=== PATIENT | male | born 1955 | race Caucasian/White ===

== ENCOUNTER 2023-06-04 19:43 | Emergency (ER) | payer OTHER ==
[~2023-06-04] VITALS: Ht 165.1 cm; Wt 70.3 kg
[~2023-06-04 19:43] MED LIST: AMLO10 PO; ASPI81CH PO; ATOR40TA PO; CLOP75 PO; HYDCHL12.5 PO; LOSA50 PO; METO50ER PO; Omeprazole20 M1 PO
[2023-06-04 20:20] LABS: BASOPHILS ABSOLUTE AUTO 0.05 K/mm3 (0.00-0.23); BASOPHILS PERCENT AUTO 0 % (0-2); EOSINOPHILS ABSOLUTE AUTO 0.03 K/mm3 (0.00-0.68); EOSINOPHILS PERCENT AUTO 0 % (0-6); Hematocrit 43.2 % (37.0-53.0); Hemoglobin 16.1 g/dL (13.5-17.5); IMMATURE GRAN ABSOLUTE AUTO 0.04 K/mm3 (0.00-0.10); IMMATURE GRAN PERCENT AUTO 0 % (0-1); LYMPHOCYTES ABSOLUTE AUTO 0.91 K/mm3 (0.84-5.20); LYMPHOCYTES PERCENT AUTO 6 % (21-46); MONOCYTES ABSOLUTE AUTO 0.84 K/mm3 (0.16-1.47); MONOCYTES PERCENT AUTO 6 % (4-13); Mean Corpuscular HGB 35.7 pg (26.0-34.0); Mean Corpuscular HGB Conc 37.3 g/dL (31.5-36.5); Mean Corpuscular Volume 96 fL (80-100); Mean Platelet Volume 10.5 fL (9.1-12.4); NEUTROPHILS ABSOLUTE AUTO 12.39 K/mm3 (1.96-9.15); NEUTROPHILS PERCENT AUTO 87 % (41-73); Platelet Count 211 K/mm3 (150-400); RDW Coefficient Variation 11.7 % (11.7-14.2); RDW Standard Deviation 41.1 fL (35.1-46.3); Red Blood Cell Count 4.51 M/mm3 (4.30-5.90); White Blood Cell Count 14.26 K/mm3 (4.00-11.30)
[2023-06-04 20:41] LABS: Albumin, Blood 3.8 g/dL (3.4-5.0); Albumin/Globulin Ratio 0.9 (0.8-1.8); Bilirubin, Total 0.7 mg/dL (0.1-1.0); Bun/Creatinine Ratio 16.8 (12.0-20.0); Calcium, Blood 9.2 mg/dL (8.5-10.1); Creatinine, Blood 1.01 mg/dL (0.60-1.20); Globulin, Blood 4.2 g/dL (2.2-4.0); Potassium, Blood 3.6 mmol/L (3.5-5.5)
[2023-06-04 23:11] LABS: Source, Urine Clean Catch
[2023-06-04 23:15] LABS: Bilirubin, Urine Neg (Neg); Blood, Urine Neg (Neg); Glucose Qualitative, Urine Neg (Neg); Ketones, Urine Neg (Neg); Leukocyte Esterase, Urine Neg (Neg); Nitrite, Urine Neg (Neg); Protein, Urine 1+ (Neg); Urobilinogen, Urine NORM (Normal)
[2023-06-04 23:32] LABS: Appearance, Urine Clear (Clear); Color, Urine Yellow (P-Yellow)
[2023-06-05 01:00] VITALS: BP 152/77
== END 2023-06-05 02:25 | disposition home or self-care (01) ==
LOC: ER 19:43
PROVIDERS: Emergency Medicine; Student in an Organized Health Care Education/Training Program
DX: Z79.899 Other long term (current) drug therapy (principal); K80.00 Calculus of gallbladder with acute cholecystitis without obstruction; D72.829 Elevated white blood cell count, unspecified; Z79.82 Long term (current) use of aspirin; Z79.02 Long term (current) use of antithrombotics/antiplatelets
CPT/HCPCS: 71046; 74177; 80053; 83690; 84484; 85025; 93005; 93010; 96361; 96374-59; 99284-25; J2405; J7030; Q9967